=== PATIENT | female | born 1965 | race Caucasian/White ===

== ENCOUNTER → 2016-10-12 | Outpatient (REF) | payer BC | LOC: M LAB REF 16:38 | PROVIDERS: ATTEND Nurse Practitioner Family | DX: M79.671 Pain in right foot (principal) ==

== ENCOUNTER → 2017-04-15 | Outpatient (REF) | payer BC | LOC: M LAB REF 11:53 | PROVIDERS: ATTEND Nurse Practitioner Family | DX: M79.671 Pain in right foot (principal) ==

== ENCOUNTER → 2019-04-02 | Outpatient (REF) | payer BC | LOC: M LAB REF 16:17 | PROVIDERS: ATTEND Nurse Practitioner Family | DX: M10.9 Gout, unspecified (principal) ==

== ENCOUNTER → 2021-08-12 | Outpatient (REF) | payer BC | LOC: M LAB REF 16:39 | PROVIDERS: ATTEND Registered Nurse | DX: M25.572 Pain in left ankle and joints of left foot (principal); M10.9 Gout, unspecified ==

== ENCOUNTER → 2021-08-14 | Outpatient (CLI) | payer BC | LOC: M WUC 14:19 | PROVIDERS: ATTEND Registered Nurse | DX: M25.572 Pain in left ankle and joints of left foot (principal) ==

== ENCOUNTER → 2022-03-25 | Outpatient (CLI) | payer BC | LOC: M WHC 07:39 | PROVIDERS: ATTEND Registered Nurse | DX: Z12.31 Encounter for screening mammogram for malignant neoplasm of breast (principal) ==

== ENCOUNTER 2022-05-06 07:58 | Outpatient (RCR) | payer BC | END 2022-05-10 23:59 | disposition home or self-care (01) | LOC: M PT 07:58 | PROVIDERS: ATTEND Physician Assistant | DX: M76.822 Posterior tibial tendinitis, left leg (principal); M21.42 Flat foot [pes planus] (acquired), left foot ==

== ENCOUNTER → 2022-06-09 | Outpatient (RCR) | payer BC | LOC: M PT 05-11 07:45 | PROVIDERS: ATTEND Physician Assistant | DX: M76.822 Posterior tibial tendinitis, left leg (principal); M21.42 Flat foot [pes planus] (acquired), left foot ==

== ENCOUNTER 2022-06-23 12:57 | Outpatient (RCR) | payer BC | END 2022-07-10 | LOC: M PT 12:57 | PROVIDERS: ATTEND Physician Assistant | DX: M76.822 Posterior tibial tendinitis, left leg (principal); M21.42 Flat foot [pes planus] (acquired), left foot ==

== ENCOUNTER → 2022-12-30 | Outpatient (REF) | payer BC, OTHER ==
[2022-12-30 13:31] LABS: PERCENT SATURATION 31.2 % (13.2-45.0)
[2022-12-30 13:33] LABS: FERRITIN 294.1 NG/ML (7.3-270.7)
[2022-12-30 13:34] LABS: URIC ACID 9.5 MG/DL (3.1-7.8)
== END ==
LOC: M LAB REF 12:20
PROVIDERS: ATTEND Nurse Practitioner Family
DX: M10.9 Gout, unspecified (principal); D50.9 Iron deficiency anemia, unspecified